=== PATIENT | female | born 2000 | race Caucasian/White ===

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

== ENCOUNTER 2020-11-26 10:37 | Emergency (ER) | payer OTHER ==
--- NOTE | 2020-11-26 10:41 | ERPHSYRPT ---
- History of Present Illness Time Seen by Provider: 11/26/20 10:40 Historian: patient, family Exam Limitations: no limitations Physician History: This is a 20-year-old white female has who has had a section in the past no other abdominal surgeries and presents with a 1 week history of generalized abdominal pain with associated nausea and vomiting and diarrhea. In the last 2 days the pain has changed to more of a generalized burning pain. Patient is under a lot of stress at this time she states. She restarted her antidepressant medication. He has had no fevers or chills. She has no chest pain or shortness of breath. Patient states that she does have significant depression and feels more depressed recently. She denies dysuria. She denies flank pain. Patient states that in the last 3 days she has lost 13 pounds. She has not been eating in the 4 days prior to the last 3 days. However she has been trying to eat in the last 3 days and she continues to vomit. Timing/Duration: week(s) (1), intermittent, worse Quality: burning Abdominal Pain Onset Location: generalized abdomen Pain Radiation: no radiation Severity of Pain-Max: mild Severity of Pain-Current: mild Modifying Factors: Improves With: eating, vomiting Associated Symptoms: diarrhea, loss of appetite, nausea, vomiting Previous symptoms: no prior history Allergies/Adverse Reactions: No Known Drug Allergies Allergy (Verified 11/26/20 11:08) Home Medications: Sertraline HCl 50 mg [Zoloft 50 mg Tablet] 50 mg PO DAILY 11/26/20 [History] Hx Tetanus, Diphtheria Vaccination/Date Given: Yes Hx Influenza Vaccination/Date Given: Yes Hx Pneumococcal Vaccination/Date Given: No Travel Risk - International Travel Have you traveled outside of the country in past 3 weeks: No - Coronavirus Screening Are you exhibiting any of the following symptoms?: No Close contact with a COVID-19 positive Pt in past 14-21 Days: No - Review of Systems Constitutional: No Symptoms Eyes: No Symptoms Ears, Nose, & Throat: No Symptoms Respiratory: No Symptoms Cardiac: No Symptoms Abdominal/Gastrointestinal: Abdominal Pain, Nausea, Vomiting, Diarrhea, Appetite Changes Genitourinary Symptoms: No Symptoms Musculoskeletal: No Symptoms Skin: No Symptoms Neurological: No Symptoms Psychological: No Symptoms Endocrine: No Symptoms Hematologic/Lymphatic: No Symptoms Immunological/Allergic: No Symptoms All Other Systems: Reviewed and Negative - Past Medical History Pertinent Past Medical History: Yes Neurological History: No Pertinent History Cardiac History: No Pertinent History Respiratory History: No Pertinent History Endocrine Medical History: Hyperthyroidism Musculoskeletal History: No Pertinent History Other Medical History: 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 - Past Surgical History Past Surgical History: Yes Female Surgical History: Section Other Surgical History: SKIN GRAFTS-2014 - Social History Smoking Status: Former smoker How long have you smoked: 3 mos Exposure to second hand smoke: No Drug Use: none Patient Lives Alone: No - Nursing Vital Signs Nursing Vital Signs: Initial Vital Signs Temperature 97.8 F 11/26/20 10:49 Pulse Rate 110 H 11/26/20 10:49 Respiratory Rate 20 11/26/20 10:49 Blood Pressure 142/95 11/26/20 10:49 O2 Sat by Pulse Oximetry 99 11/26/20 10:49 Pain Scale Pain Intensity 0 - Physical Exam General Appearance: no apparent distress, alert, anxiety Eye Exam: PERRL/EOMI, eyes nml inspection Ears, Nose, Throat Exam: normal ENT inspection, moist mucous membranes Neck Exam: normal inspection, non-tender, supple, full range of motion Respiratory Exam: normal breath sounds, lungs clear, airway intact, No chest tenderness, No respiratory distress Cardiovascular Exam: regular rate/rhythm, normal heart sounds, normal peripheral pulses Gastrointestinal/Abdomen Exam: soft, normal bowel sounds, tenderness (Mild gener alized), guarding, No rebound Pelvic Exam: not done Rectal Exam: not done Back Exam: normal inspection, normal range of motion, No CVA tenderness, No vertebral tenderness Extremity Exam: normal inspection, normal range of motion, pelvis stable Neurologic Exam: alert, oriented x 3, cooperative, sand mixer II-XII nml as tested, nml cerebellar function, nml station & gait, depressed mood/affect Skin Exam: normal color, warm, dry Lymphatic Exam: No adenopathy SpO2 Interpretation: normal O2 Delivery: Room Air - Course Nursing assessment & vital signs reviewed: Yes Ordered Tests: Active Orders 24 hr Category Date Time Status IV Insertion STAT Care 11/26/20 11:23 Active ABDOMEN AND PELVIS W/0 CONTRAS [CT] Stat Exams 11/26/20 11:24 Taken AMYLASE Stat Lab 11/26/20 11:08 Completed CBC W DIFF Stat Lab 11/26/20 11:08 Completed CMP Stat Lab 11/26/20 11:08 Completed HCG,QUALITATIVE URINE Stat Lab 11/26/20 11:08 Completed LIPASE Stat Lab 11/26/20 11:08 Completed Lactic Acid Stat Lab 11/26/20 11:23 Completed UA W/RFX UR CULTURE Stat Lab 11/26/20 11:08 Completed Medication Summary Discontinued Medications Generic Name Dose Route Start Last Admin Trade Name Rosi PRN Reason Stop Dose Admin Hydromorphone HCl 0.5 mg 11/26/20 11:23 11/26/20 11:31 Hydromorphone 1 Mg/Ml Injection IV 11/26/20 11:24 0.5 mg STAT ONE Administration Hydromorphone HCl Confirm 11/26/20 11:29 Hydromorphone 1 Mg/Ml Injection Administered 11/26/20 11:30 Dose 1 mg .ROUTE .STK-MED ONE Sodium Chloride 1,000 mls @ 999 mls/hr 11/26/20 11:23 11/26/20 11:30 Sodium Chloride 0.9% 1000 Ml IV 11/26/20 12:23 999 mls/hr .Q1H1M STA Administration Sodium Chloride Confirm 11/26/20 11:29 Sodium Chloride 0.9% 1000 Ml Administered 11/26/20 11:30 Dose 1,000 mls @ ud .ROUTE .STK-MED ONE Ondansetron HCl 4 mg 11/26/20 11:23 11/26/20 11:30 Zofran 4 Mg/2 Ml Vial IV 11/26/20 11:24 4 mg STAT ONE Administration Ondansetron HCl Confirm 11/26/20 11:29 Zofran 4 Mg/2 Ml Vial Administered 11/26/20 11:30 Dose 4 mg .ROUTE .STK-MED ONE Pantoprazole Sodium 40 mg 11/26/20 11:23 11/26/20 11:30 Protonix 40 Mg Iv IV 11/26/20 11:24 40 mg STAT ONE Administration Pantoprazole Sodium Confirm 11/26/20 11:29 Protonix 40 Mg Iv Administered 11/26/20 11:30 Dose 40 mg IV .STK-MED ONE Lab/Rad Data: Laboratory Result Diagrams 11/26/20 11:08 11/26/20 11:08 Laboratory Results 06/12/1111/26/20 11/26/20 Range/Units 11:23 11:08 11:08 WBC (4.0-10.5) K/mm3 RBC (4.1-5.4) M/mm3 Hgb (12.0-16.0) gm/dl Hct (35-47) % MCV (78-100) fl MCH (26-32) pg MCHC (32-36) g/dl RDW (11.5-14.0) % Plt Count (150-450) K/mm3 MPV (7.5-11.0) fl Gran % (36.0-66.0) % Eos # (Auto) (0-0.5) Absolute Lymphs (auto) (1.0-4.6) Absolute Monos (auto) (0.0-1.3) Lymphocytes % (24.0-44.0) % Monocytes % (0.0-12.0) % Eosinophils % (0.00-5.0) % Basophils % (0.0-0.4) % Absolute Granulocytes (1.4-6.9) Basophils # (0-0.4) Sodium (137-145) mmol/L Potassium (3.5-5.1) mmol/L Chloride (98-107) mmol/L Carbon Dioxide (22-30) mmol/L Anion Gap (5-15) MEQ/L BUN (7-17) mg/dL Creatinine (0.52-1.04) mg/dL Estimated GFR ML/MIN Glucose (74-106) mg/dL Lactic Acid 1.2 (0.4-2.0) Calcium (8.4-10.2) mg/dL Total Bilirubin (0.2-1.3) mg/dL AST (14-36) U/L ALT (0-35) U/L Alkaline Phosphatase (38-126) U/L Serum Total Protein (6.3-8.2) g/dL Albumin (3.5-5.0) g/dL Amylase (30-110) U/L Lipase (23-300) U/L Urine Color MARINO (YELLOW) Urine Appearance SLIGHTLY CLOUDY (CLEAR) Urine pH 5.0 (5-6) Ur Specific [place] 1.032 (1.005-1.025) Urine Protein 30 (Negative) Urine Ketones SMALL (NEGATIVE) Urine Blood MODERATE (0-5) Cash/ul Urine Nitrite NEGATIVE (NEGATIVE) Urine Bilirubin NEGATIVE (NEGATIVE) Urine Urobilinogen 2 (0-1) mg/dL Ur Leukocyte Esterase SMALL (NEGATIVE) Urine WBC (Auto) 6-10 (0-5) /HPF Urine RBC (Auto) 0-2 (0-2) /HPF U Hyaline Cast (Auto) 0-2 (0-2) /LPF U Epithel Cells (Auto) RARE (FEW) /HPF Urine Bacteria (Auto) NONE (NEGATIVE) /HPF Urine Mucus (Auto) MANY (NEGATIVE) /HPF Urine Culture Reflexed NO (NO) Urine Glucose NEGATIVE (NEGATIVE) mg/dL Urine HCG, Qual NEGATIVE (Negative) 11/26/20 11/26/20 Range/Units 11:08 11:08 WBC 7.6 (4.0-10.5) K/mm3 RBC 4.49 (4.1-5.4) M/mm3 Hgb 14.7 (12.0-16.0) gm/dl Hct 43.8 (35-47) % MCV 97.6 (78-100) fl MCH 32.7 H (26-32) pg MCHC 33.6 (32-36) g/dl RDW 12.2 (11.5-14.0) % Plt Count 340 (150-450) K/mm3 MPV 9.4 (7.5-11.0) fl Gran % 60.9 (36.0-66.0) % Eos # (Auto) 0.15 (0-0.5) Absolute Lymphs (auto) 2.14 (1.0-4.6) Absolute Monos (auto) 0.66 (0.0-1.3) Lymphocytes % 28.3 (24.0-44.0) % Monocytes % 8.7 (0.0-12.0) % Eosinophils % 2.0 (0.00-5.0) % Basophils % 0.1 (0.0-0.4) % Absolute Granulocytes 4.60 (1.4-6.9) Basophils # 0.01 (0-0.4) Sodium 141 (137-145) mmol/L Potassium 3.7 (3.5-5.1) mmol/L Chloride 107 (98-107) mmol/L Carbon Dioxide 22 (22-30) mmol/L Anion Gap 16.1 H (5-15) MEQ/L BUN 9 (7-17) mg/dL Creatinine 0.72 (0.52-1.04) mg/dL Estimated GFR > 60.0 ML/MIN Glucose 103 (74-106) mg/dL Lactic Acid (0.4-2.0) Calcium 9.7 (8.4-10.2) mg/dL Total Bilirubin 0.50 (0.2-1.3) mg/dL AST 22 (14-36) U/L ALT 21 (0-35) U/L Alkaline Phosphatase 80 (38-126) U/L Serum Total Protein 7.9 (6.3-8.2) g/dL Albumin 4.8 (3.5-5.0) g/dL Amylase 47 (30-110) U/L Lipase 40 (23-300) U/L Urine Color (YELLOW) Urine Appearance (CLEAR) Urine pH (5-6) Ur Specific [place] (1.005-1.025) Urine Protein (Negative) Urine Ketones (NEGATIVE) Urine Blood (0-5) Cash/ul Urine Nitrite (NEGATIVE) Urine Bilirubin (NEGATIVE) Urine Urobilinogen (0-1) mg/dL Ur Leukocyte Esterase (NEGATIVE) Urine WBC (Auto) (0-5) /HPF Urine RBC (Auto) (0-2) /HPF U Hyaline Cast (Auto) (0-2) /LPF U Epithel Cells (Auto) (FEW) /HPF Urine Bacteria (Auto) (NEGATIVE) /HPF Urine Mucus (Auto) (NEGATIVE) /HPF Urine Culture Reflexed (NO) Urine Glucose (NEGATIVE) mg/dL Urine HCG, Qual (Negative) - Progress Progress Note: 11/26/20 12:23 CAT scan of the abdomen and pelvis shows no acute intra-abdominal or intrapelvic findings. Counseled pt/family regarding: lab results, diagnosis, need for follow-up, rad results - Departure Departure Disposition: Home Clinical Impression: UTI (urinary tract infection), Abdominal pain Condition: Stable Critical Care Time: No Referrals: KIARA LAGUNA [Primary Care Provider] - Additional Instructions: Drink plenty of fluids. Take your medication as prescribed. Follow-up with Dr. Laguna's office tomorrow morning to make arrangements for follow-up appointment and further management. Prescriptions: Ondansetron ODT 4 MG [Zofran Odt 4 mg] 4 mg PO Q6H PRN PRN #10 tab.rapdis PRN Reason: Vomiting Ciprofloxacin [Cipro 500 MG] 500 mg PO BID #14 tablet
[2020-11-26] MEDS ORDERED: Sodium Chloride 0.9% 1000 ML 1,000 ML IV STA (11:23)
[2020-11-26] MEDS ORDERED: Zofran 4 MG/2 ML VIAL IV ONE (11:23)
[2020-11-26] MEDS ORDERED: PROTONIX 40 MG IV IV ONE ×2 (11:23→11:29)
[2020-11-26] MEDS ORDERED: Hydromorphone 1 mg/ml Injection IV ONE (11:23)
[2020-11-26 11:29] LABS: BASOPHIL % 0.1 % (0.0-0.4); Basophil (Absolute #) 0.01 (0-0.4); Eosinophil (Absolute #) 0.15 (0-0.5); Hematocrit 43.8 % (35-47); Hemoglobin 14.7 gm/dl (12.0-16.0); Lymphocyte (Absolute #) 2.14 (1.0-4.6); Lymphocytes % 28.3 % (24.0-44.0); Mean Cell Volume 97.6 fl (78-100); Mean Corpuscular Hemoglobin 32.7 pg (26-32); Mean Corpuscular Hgb Concent. 33.6 g/dl (32-36); Mean Platelet Volume 9.4 fl (7.5-11.0); Monocyte (Absolute #) 0.66 (0.0-1.3); Monocytes % 8.7 % (0.0-12.0); Neutrophil % 60.9 % (36.0-66.0); Platelet Count 340 K/mm3 (150-450); Red Blood Count 4.49 M/mm3 (4.1-5.4); Red Cell Distribution Width 12.2 % (11.5-14.0); White Blood Count 7.6 K/mm3 (4.0-10.5)
[2020-11-26] MEDS ORDERED: Hydromorphone 1 mg/ml Injection ONE (11:29)
[2020-11-26] MEDS ORDERED: Sodium Chloride 0.9% 1000 ML 1,000 ML ONE (11:29)
[2020-11-26] MEDS ORDERED: Zofran 4 MG/2 ML VIAL ONE (11:29)
[2020-11-26 11:41] LABS: ALBUMIN 4.8 g/dL (3.5-5.0); ALKALINE PHOSPHATASE 80 U/L (38-126); AMYLASE 47 U/L (30-110); ANION GAP 16.1 MEQ/L (5-15); Appearance SLIGHTLY CLOUDY (CLEAR); BLOOD UREA NITROGEN 9 mg/dL (7-17); Bilirubin NEGATIVE (NEGATIVE); Blood MODERATE Ery/ul (0-5); CHLORIDE 107 mmol/L (98-107); Calcium 9.7 mg/dL (8.4-10.2); Carbon Dioxide 22 mmol/L (22-30); Creatinine 1 0.72 mg/dL (0.52-1.04); EST GLOMERULAR FILTRATION RATE > 60.0 ML/MIN; Epithelial Cells RARE /HPF (FEW); Glucose 103 mg/dL (74-106); Glucose NEGATIVE (NEGATIVE); Hyaline Casts 0-2 /LPF (0-2); Ketones SMALL (NEGATIVE); LIPASE 40 U/L (23-300); Leukocyte Esterase SMALL (NEGATIVE); Mucus MANY /HPF (NEGATIVE); Nitrite NEGATIVE (NEGATIVE); Potassium 3.7 mmol/L (3.5-5.1); Protein,Urine Dip 30 (Negative); RBC 0-2 /HPF (0-2); SGOT/AST 22 U/L (14-36); SGPT/ALT 21 U/L (0-35); SODIUM 141 mmol/L (137-145); Specific Gravity 1.032 (1.005-1.025); Total Protein 7.9 g/dL (6.3-8.2); Urobilinogen 2 mg/dL (0-1)
[2020-11-26] MEDS ORDERED: ROCEPHIN 1 Gm-D5w 50 ml Bag** 1 G/50 ML IVPB IV STA (12:24)
[2020-11-26] MEDS ORDERED: ROCEPHIN 1 Gm-D5w 50 ml Bag** 1 G/50 ML IVPB IV ONE (12:26)
[2020-11-26 13:11] VITALS: BP 99/56; PULSE 99; O2SAT 99
--- NOTE | 2020-11-26 19:21 | XRAY ---
Indication: Abdomen pain, nausea, vomiting, and diarrhea. Multiple contiguous axial images obtained through the abdomen and pelvis without contrast. Comparison: November 14, 2013 Lung bases demonstrates minimal bibasilar atelectasis/scarring and tiny right lower lobe calcified granuloma. No infiltrate or effusion. Heart not enlarged. Noncontrasted stomach and bowel loops nonobstructed. Normal appendix. Uterus demonstrates new IUD. No free fluid/air. Remaining liver, gallbladder, pancreas, spleen, adrenal glands, kidneys, ureters, bladder, uterus, and aorta are unremarkable for noncontrast exam. Osseous structures intact. Impression: 1. New IUD in situ. 2. Remaining CT abdomen/pelvis without contrast exam is negative. Comment: Preliminary interpretation was made by [facility]. No critical discrepancy.
== END 2020-11-26 13:12 | disposition home or self-care (01) ==
LOC: ED 10:37
DX: N39.0 Urinary tract infection, site not specified (principal); R10.9 Unspecified abdominal pain
CPT/HCPCS: 36000; 36415; 74176; 80053; 81001; 82150; 83605; 83690; 84703; 85025; 96360; 96365; 96374; 96375; 99284; J0696; J1170; J2405

== ENCOUNTER 2020-12-22 07:23 | Emergency (ER) | payer OTHER ==
[2020-12-22] MEDS ORDERED: Sodium Chloride 0.9% 1000 ML 1,000 ML IV STA (07:46)
--- NOTE | 2020-12-22 07:51 | ERPHSYRPT ---
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 She does report sore throat congestion and generalized chest soreness/tightness. Had nausea but no vomiting. Complaining of generalized body aches fatigue extreme tiredness with no energy. Does report mild headache and lightheadedness. Reports having multiple episodes of strep pharyngitis in the past. Did not have Covid vaccine Timing/Duration: today, sudden, improved Cough Quality/Degree: no cough Modifying Factors: Improves With: activity Associated Symptoms: fever, chills, chest pain/soreness, headache, lightheadedness, muscle aches, nasal congestion, sore throat, No shortness of breath Allergies/Adverse Reactions: No Known Drug Allergies Allergy (Verified 12/22/20 07:35) Home Medications: Sertraline HCl 50 mg [Zoloft 50 mg Tablet] 50 mg PO DAILY 11/26/20 [History] Hydroxyzine HCl 25 mg [Atarax 25 mg] 25 mg PO DAILY 12/22/20 [History] Omeprazole 40 mg PO DAILY 12/22/20 [History] Hx Tetanus, Diphtheria Vaccination/Date Given: Yes Hx Influenza Vaccination/Date Given: Yes Hx Pneumococcal Vaccination/Date Given: No Travel Risk - International Travel Have you traveled outside of the country in past 3 weeks: No - Coronavirus Screening Are you exhibiting any of the following symptoms?: No Symptoms: Fever, Headaches/Body Aches/Fatigue Close contact with a COVID-19 positive Pt in past 14-21 Days: Yes - Vaccine Status Have you recieved a Covid-19 vaccination: No - Review of Systems Constitutional: Fever, Chills, Fatigue, Weakness Eyes: No Symptoms Ears, Nose, & Throat: Nose Congestion, Throat Pain Respiratory: No Symptoms Cardiac: Chest Pain Abdominal/Gastrointestinal: Nausea Genitourinary Symptoms: No Symptoms Musculoskeletal: Myalgias Neurological: Dizziness, Headache Psychological: No Symptoms Endocrine: No Symptoms Hematologic/Lymphatic: No Symptoms Immunological/Allergic: No Symptoms - Past Medical History Pertinent Past Medical History: Yes Neurological History: No Pertinent History Cardiac History: No Pertinent History Respiratory History: No Pertinent History Endocrine Medical History: Hyperthyroidism Musculoskeletal History: No Pertinent History GI Medical History: Ulcer Other Medical History: 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 - Past Surgical History Past Surgical History: Yes Musculoskeletal: Orthopedic Surgery Female Surgical History: Section Other Surgical History: SKIN GRAFTS-2014 - Social History Smoking Status: Current every day smoker How long have you smoked: 3 mos Exposure to second hand smoke: Yes Drug Use: none Patient Lives Alone: No - Female History Hx Now: No (leni) - Nursing Vital Signs Nursing Vital Signs: Initial Vital Signs Temperature 98.9 F 12/22/20 07:26 Pulse Rate 117 H 12/22/20 07:26 Blood Pressure 93/59 12/22/20 07:26 O2 Sat by Pulse Oximetry 97 12/22/20 07:26 Pain Scale Pain Intensity 3 - Physical Exam General Appearance: no apparent distress, alert Eye Exam: PERRL/EOMI, eyes nml inspection Ears, Nose, Throat Exam: TMs normal, pharyngeal erythema Neck Exam: normal inspection, non-tender, supple, full range of motion Respiratory Exam: normal breath sounds, lungs clear Cardiovascular Exam: normal heart sounds, tachycardia Gastrointestinal/Abdomen Exam: soft, normal bowel sounds, No tenderness Back Exam: normal inspection, normal range of motion Extremity Exam: normal inspection, normal range of motion, pelvis stable Neurologic Exam: alert, oriented x 3, cooperative Skin Exam: normal color SpO2 Interpretation: normal SpO2: 97 O2 Delivery: Room Air Ordered Tests: Active Orders 24 hr Category Date Time Status IV Insertion STAT Care 12/22/20 07:46 Completed CHEST 1 VIEW (PORTABLE) Stat Exams 12/22/20 07:47 Completed BLOOD CULTURE Stat Lab 12/22/20 08:20 Received CBC W DIFF Stat Lab 12/22/20 08:20 Completed CMP Stat Lab 12/22/20 08:20 Completed HCG,QUALITATIVE URINE Stat Lab 12/22/20 08:14 Completed Lactic Acid Stat Lab 12/22/20 07:46 Completed UA W/RFX UR CULTURE Stat Lab 12/22/20 08:14 Completed Medication Summary Discontinued Medications Generic Name Dose Route Start Last Admin Trade Name Rosi PRN Reason Stop Dose Admin Acetaminophen 1,000 mg 12/22/20 09:38 12/22/20 09:41 Tylenol Extra Strength 500 Mg PO 01/21/21 09:37 1,000 mg Q4H PRN PRN Administration HEADACHE Acetaminophen Confirm 12/22/20 09:40 Tylenol Extra Strength 500 Mg Administered 12/22/20 09:41 Dose 1,000 mg .ROUTE .STK-MED ONE Amoxicillin/Clavulanate Potassium 875 mg 12/22/20 09:36 12/22/20 09:42 Augmentin 875-125 Tablet PO 12/22/20 09:37 875 mg STAT ONE Administration Amoxicillin/Clavulanate Potassium Confirm 12/22/20 09:40 Augmentin 875-125 Tablet Administered 12/22/20 09:41 Dose 875 mg .ROUTE .STK-MED ONE Sodium Chloride 1,000 mls @ 999 mls/hr 12/22/20 07:46 12/22/20 09:23 Sodium Chloride 0.9% 1000 Ml IV 12/22/20 08:46 Infused .Q1H1M STA Infusion Sodium Chloride Confirm 12/22/20 08:04 Sodium Chloride 0.9% 1000 Ml Administered 12/22/20 08:05 Dose 1,000 mls @ ud .ROUTE .STK-MED ONE Lab/Rad Data: Laboratory Result Diagrams 12/22/20 08:20 12/22/20 08:20 Laboratory Results 12/22/20 12/22/20 12/22/20 Range/Units 08:20 08:20 08:20 WBC (4.0-10.5) K/mm3 RBC (4.1-5.4) M/mm3 Hgb (12.0-16.0) gm/dl Hct (35-47) % MCV (78-100) fl MCH (26-32) pg MCHC (32-36) g/dl RDW (11.5-14.0) % Plt Count (150-450) K/mm3 MPV (7.5-11.0) fl Gran % (36.0-66.0) % Eos # (Auto) (0-0.5) Absolute Lymphs (auto) (1.0-4.6) Absolute Monos (auto) (0.0-1.3) Lymphocytes % (24.0-44.0) % Monocytes % (0.0-12.0) % Eosinophils % (0.00-5.0) % Basophils % (0.0-0.4) % Absolute Granulocytes (1.4-6.9) Basophils # (0-0.4) Sodium 135 L (137-145) mmol/L Potassium 3.9 (3.5-5.1) mmol/L Chloride 101 (98-107) mmol/L Carbon Dioxide 23 (22-30) mmol/L Anion Gap 14.9 (5-15) MEQ/L BUN 8 (7-17) mg/dL Creatinine 0.71 (0.52-1.04) mg/dL Estimated GFR > 60.0 ML/MIN Glucose 104 (74-106) mg/dL Lactic Acid (0.4-2.0) Calcium 9.2 (8.4-10.2) mg/dL Total Bilirubin 0.60 (0.2-1.3) mg/dL AST 27 (14-36) U/L ALT 15 (0-35) U/L Alkaline Phosphatase 61 (38-126) U/L Serum Total Protein 7.2 (6.3-8.2) g/dL Albumin 4.5 (3.5-5.0) g/dL Urine Color (YELLOW) Urine Appearance (CLEAR) Urine pH (5-6) Ur Specific [place] (1.005-1.025) Urine Protein (Negative) Urine Ketones (NEGATIVE) Urine Blood (0-5) Cash/ul Urine Nitrite (NEGATIVE) Urine Bilirubin (NEGATIVE) Urine Urobilinogen (0-1) mg/dL Ur Leukocyte Esterase (NEGATIVE) Urine WBC (Auto) (0-5) /HPF Urine RBC (Auto) (0-2) /HPF U Epithel Cells (Auto) (FEW) /HPF Urine Bacteria (Auto) (NEGATIVE) /HPF Urine Mucus (Auto) (NEGATIVE) /HPF Urine Culture Reflexed (NO) Urine Glucose (NEGATIVE) mg/dL Urine HCG, Qual (Negative) SARS-CoV-2 (PCR) NEGATIVE (NEGATIVE) Group A Strep Antibody DETECTED (NEGATIVE) 12/22/20 12/22/20 12/22/20 Range/Units 08:20 08:14 08:14 WBC 13.8 H (4.0-10.5) K/mm3 RBC 4.22 (4.1-5.4) M/mm3 Hgb 13.8 (12.0-16.0) gm/dl Hct 41.2 (35-47) % MCV 97.6 (78-100) fl MCH 32.7 H (26-32) pg MCHC 33.5 (32-36) g/dl RDW 11.4 L (11.5-14.0) % Plt Count 310 (150-450) K/mm3 MPV 9.5 (7.5-11.0) fl Gran % 87.9 H (36.0-66.0) % Eos # (Auto) 0.01 (0-0.5) Absolute Lymphs (auto) 0.78 L (1.0-4.6) Absolute Monos (auto) 0.86 (0.0-1.3) Lymphocytes % 5.7 L (24.0-44.0) % Monocytes % 6.2 (0.0-12.0) % Eosinophils % 0.1 (0.00-5.0) % Basophils % 0.1 (0.0-0.4) % Absolute Granulocytes 12.13 H (1.4-6.9) Basophils # 0.02 (0-0.4) Sodium (137-145) mmol/L Potassium (3.5-5.1) mmol/L Chloride (98-107) mmol/L Carbon Dioxide (22-30) mmol/L Anion Gap (5-15) MEQ/L BUN (7-17) mg/dL Creatinine (0.52-1.04) mg/dL Estimated GFR ML/MIN Glucose (74-106) mg/dL Lactic Acid (0.4-2.0) Calcium (8.4-10.2) mg/dL Total Bilirubin (0.2-1.3) mg/dL AST (14-36) U/L ALT (0-35) U/L Alkaline Phosphatase (38-126) U/L Serum Total Protein (6.3-8.2) g/dL Albumin (3.5-5.0) g/dL Urine Color YELLOW (YELLOW) Urine Appearance SLIGHTLY CLOUDY (CLEAR) Urine pH 5.0 (5-6) Ur Specific [place] 1.024 (1.005-1.025) Urine Protein NEGATIVE (Negative) Urine Ketones NEGATIVE (NEGATIVE) Urine Blood MODERATE (0-5) Cash/ul Urine Nitrite NEGATIVE (NEGATIVE) Urine Bilirubin NEGATIVE (NEGATIVE) Urine Urobilinogen NEGATIVE (0-1) mg/dL Ur Leukocyte Esterase NEGATIVE (NEGATIVE) Urine WBC (Auto) 3-5 (0-5) /HPF Urine RBC (Auto) 0-2 (0-2) /HPF U Epithel Cells (Auto) RARE (FEW) /HPF Urine Bacteria (Auto) RARE (NEGATIVE) /HPF Urine Mucus (Auto) SLIGHT (NEGATIVE) /HPF Urine Culture Reflexed NO (NO) Urine Glucose NEGATIVE (NEGATIVE) mg/dL Urine HCG, Qual NEGATIVE (Negative) SARS-CoV-2 (PCR) (NEGATIVE) Group A Strep Antibody (NEGATIVE) 12/22/20 Range/Units 07:46 WBC (4.0-10.5) K/mm3 RBC (4.1-5.4) M/mm3 Hgb (12.0-16.0) gm/dl Hct (35-47) % MCV (78-100) fl MCH (26-32) pg MCHC (32-36) g/dl RDW (11.5-14.0) % Plt Count (150-450) K/mm3 MPV (7.5-11.0) fl Gran % (36.0-66.0) % Eos # (Auto) (0-0.5) Absolute Lymphs (auto) (1.0-4.6) Absolute Monos (auto) (0.0-1.3) Lymphocytes % (24.0-44.0) % Monocytes % (0.0-12.0) % Eosinophils % (0.00-5.0) % Basophils % (0.0-0.4) % Absolute Granulocytes (1.4-6.9) Basophils # (0-0.4) Sodium (137-145) mmol/L Potassium (3.5-5.1) mmol/L Chloride (98-107) mmol/L Carbon Dioxide (22-30) mmol/L Anion Gap (5-15) MEQ/L BUN (7-17) mg/dL Creatinine (0.52-1.04) mg/dL Estimated GFR ML/MIN Glucose (74-106) mg/dL Lactic Acid 0.9 (0.4-2.0) Calcium (8.4-10.2) mg/dL Total Bilirubin (0.2-1.3) mg/dL AST (14-36) U/L ALT (0-35) U/L Alkaline Phosphatase (38-126) U/L Serum Total Protein (6.3-8.2) g/dL Albumin (3.5-5.0) g/dL Urine Color (YELLOW) Urine Appearance (CLEAR) Urine pH (5-6) Ur Specific [place] (1.005-1.025) Urine Protein (Negative) Urine Ketones (NEGATIVE) Urine Blood (0-5) Cash/ul Urine Nitrite (NEGATIVE) Urine Bilirubin (NEGATIVE) Urine Urobilinogen (0-1) mg/dL Ur Leukocyte Esterase (NEGATIVE) Urine WBC (Auto) (0-5) /HPF Urine RBC (Auto) (0-2) /HPF U Epithel Cells (Auto) (FEW) /HPF Urine Bacteria (Auto) (NEGATIVE) /HPF Urine Mucus (Auto) (NEGATIVE) /HPF Urine Culture Reflexed (NO) Urine Glucose (NEGATIVE) mg/dL Urine HCG, Qual (Negative) SARS-CoV-2 (PCR) (NEGATIVE) Group A Strep Antibody (NEGATIVE) - Progress Progress: improved Air Movement: good Progress Note: 12/22/20 09:40 She is given fluid bolus and Tylenol. Work-up showed white count of 13, grossly unremarkable chemistries. Negative COVID-19 swab. Does have strep throat positive. Started on Augmentin. Recommended outpatient follow-up. Discussed signs symptoms of worsening needing return to ER which she seems understanding. Stable for discharge. Blood Culture(s) Obtained: Yes Antibiotics given: Yes Counseled pt/family regarding: lab results, diagnosis, need for follow-up, rad results - Departure Departure Disposition: Home Clinical Impression: Strep pharyngitis Condition: Stable Critical Care Time: No Referrals: KIARA CLEMENTE [Primary Care Provider] - Follow Up with PCP/3 days Instructions: Sore Throat in Adults, Fever, Adult (DC) Additional Instructions: Take Tylenol/ibuprofen as needed for fever greater than 100.4. Drink plenty of fluids. Follow-up with primary care physician for reevaluation. Return to ER for worsening sore throat, persistent fever, decreased oral intake etc. Prescriptions: Amoxicillin/Potassium Clav [Augmentin 875-125 Tablet] 875 mg PO BID 7 Days #20 tablet
[2020-12-22] MEDS ORDERED: Sodium Chloride 0.9% 1000 ML 1,000 ML ONE (08:04)
[2020-12-22 08:37] LABS: Absolute Neutrophil Ct (ANC) 12.13 (1.4-6.9); BASOPHIL % 0.1 % (0.0-0.4); Basophil (Absolute #) 0.02 (0-0.4); Eosinophil % 0.1 % (0.00-5.0); Eosinophil (Absolute #) 0.01 (0-0.5); Hematocrit 41.2 % (35-47); Hemoglobin 13.8 gm/dl (12.0-16.0); Lymphocyte (Absolute #) 0.78 (1.0-4.6); Lymphocytes % 5.7 % (24.0-44.0); Mean Cell Volume 97.6 fl (78-100); Mean Corpuscular Hemoglobin 32.7 pg (26-32); Mean Corpuscular Hgb Concent. 33.5 g/dl (32-36); Mean Platelet Volume 9.5 fl (7.5-11.0); Monocyte (Absolute #) 0.86 (0.0-1.3); Monocytes % 6.2 % (0.0-12.0); Neutrophil % 87.9 % (36.0-66.0); Platelet Count 310 K/mm3 (150-450); Red Blood Count 4.22 M/mm3 (4.1-5.4); Red Cell Distribution Width 11.4 % (11.5-14.0); White Blood Count 13.8 K/mm3 (4.0-10.5)
[2020-12-22 08:43] LABS: Appearance SLIGHTLY CLOUDY (CLEAR); Bacteria RARE /HPF (NEGATIVE); Bilirubin NEGATIVE (NEGATIVE); Blood MODERATE Ery/ul (0-5); Epithelial Cells RARE /HPF (FEW); Glucose NEGATIVE (NEGATIVE); Ketones NEGATIVE (NEGATIVE); Leukocyte Esterase NEGATIVE (NEGATIVE); Mucus SLIGHT /HPF (NEGATIVE); Nitrite NEGATIVE (NEGATIVE); Protein,Urine Dip NEGATIVE (Negative); RBC 0-2 /HPF (0-2); Specific Gravity 1.024 (1.005-1.025); Urobilinogen NEGATIVE mg/dL (0-1)
[2020-12-22 08:54] LABS: ALBUMIN 4.5 g/dL (3.5-5.0); ALKALINE PHOSPHATASE 61 U/L (38-126); ANION GAP 14.9 MEQ/L (5-15); BLOOD UREA NITROGEN 8 mg/dL (7-17); CHLORIDE 101 mmol/L (98-107); Calcium 9.2 mg/dL (8.4-10.2); Carbon Dioxide 23 mmol/L (22-30); Creatinine 1 0.71 mg/dL (0.52-1.04); EST GLOMERULAR FILTRATION RATE > 60.0 ML/MIN; Glucose 104 mg/dL (74-106); Potassium 3.9 mmol/L (3.5-5.1); SGOT/AST 27 U/L (14-36); SGPT/ALT 15 U/L (0-35); SODIUM 135 mmol/L (137-145); Total Protein 7.2 g/dL (6.3-8.2)
--- NOTE | 2020-12-22 09:11 | XRAY ---
Indication: Fever and sore throat. Suspect Covid 19. Comparison: None Portable chest demonstrates normal heart, lungs, and bony thorax.
[2020-12-22 09:26] VITALS: BP 107/65; PULSE 93
[2020-12-22] MEDS ORDERED: Augmentin 875-125 Tablet PO ONE (09:36)
[2020-12-22] MEDS ORDERED: TYLENOL EXTRA STRENGTH 500 MG PO PRN (09:38)
[2020-12-22] MEDS ORDERED: TYLENOL EXTRA STRENGTH 500 MG ONE (09:40)
[2020-12-22] MEDS ORDERED: Augmentin 875-125 Tablet ONE (09:40)
[2020-12-22 09:42] VITALS: O2SAT 97
== END 2020-12-22 10:01 | disposition home or self-care (01) ==
LOC: ED 07:23
DX: J02.0 Streptococcal pharyngitis (principal); R07.89 Other chest pain; R11.0 Nausea; R51.9 Headache, unspecified; R42 Dizziness and giddiness; Z79.899 Other long term (current) drug therapy; Z20.828 Contact with and (suspected) exposure to other viral communicable diseases
CPT/HCPCS: 36415; 71045; 80053; 81001; 83605; 84703; 85025; 87040; 87651; 96360; 99284; U0003; A9270-GY

== ENCOUNTER 2021-07-19 10:12 | Emergency (ER) | payer OTHER ==
[2021-07-19 10:43] VITALS: O2SAT 96
--- NOTE | 2021-07-19 10:43 | ERPHSYRPT ---
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 She cleaned it thoroughly immediately afterward. Minimal bleeding on squeezing. She is not complaining of any pain right now but a little discomfort on applying pressure. Up-to-date with tetanus. Timing/Duration: today Quality: painful Severity: mild Location: hands Possible Causes: other Associated Symptoms: denies symptoms Allergies/Adverse Reactions: No Known Drug Allergies Allergy (Verified 12/22/20 07:35) Home Medications: Sertraline HCl 50 mg [Zoloft 50 mg Tablet] 50 mg PO DAILY 11/26/20 [History] Omeprazole 40 mg PO DAILY 12/22/20 [History] Phentermine HCl 1 ea DAILY 07/19/21 [History] Hx Tetanus, Diphtheria Vaccination/Date Given: Yes Hx Influenza Vaccination/Date Given: Yes Hx Pneumococcal Vaccination/Date Given: No Travel Risk - Vaccine Status Have you recieved a Covid-19 vaccination: No - Review of Systems Constitutional: No Symptoms Respiratory: No Symptoms Cardiac: No Symptoms Genitourinary Symptoms: No Symptoms Musculoskeletal: Injury Skin: Skin Lesions Neurological: No Symptoms Psychological: No Symptoms Endocrine: No Symptoms - Past Medical History Pertinent Past Medical History: Yes Neurological History: No Pertinent History Cardiac History: No Pertinent History Respiratory History: No Pertinent History Endocrine Medical History: Hyperthyroidism Musculoskeletal History: No Pertinent History GI Medical History: Ulcer Other Medical History: 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 - Past Surgical History Past Surgical History: Yes Musculoskeletal: Orthopedic Surgery Female Surgical History: Section Other Surgical History: SKIN GRAFTS-2014 - Social History Smoking Status: Current every day smoker How long have you smoked: 3 mos Exposure to second hand smoke: Yes Drug Use: none Patient Lives Alone: No - Nursing Vital Signs Nursing Vital Signs: Initial Vital Signs Temperature 98.0 F 07/19/21 10:12 Pulse Rate 107 H 07/19/21 10:12 Respiratory Rate 16 07/19/21 10:12 Blood Pressure 124/91 07/19/21 10:12 O2 Sat by Pulse Oximetry 97 07/19/21 10:12 Pain Scale Pain Intensity 0 - Physical Exam General Appearance: no apparent distress, alert Eye Exam: PERRL/EOMI Neck Exam: normal inspection, full range of motion Respiratory Exam: normal breath sounds, lungs clear Cardiovascular Exam: regular rate/rhythm, normal heart sounds Extremity Exam: other (Minimal tenderness in the right third digit pulp area with barely visible needlestick nellie.) Neurologic Exam: alert, oriented x 3, cooperative Skin Exam: normal color SpO2 Interpretation: normal SpO2: 96 O2 Delivery: Room Air Ordered Tests: Active Orders 24 hr Category Date Time Status Wound Care STAT Care 07/19/21 10:51 Active Wound Care STAT Care 07/19/21 11:14 Active CBC W DIFF Stat Lab 07/19/21 11:12 Completed CMP Stat Lab 07/19/21 11:12 Completed HCG QUALITATIVE,SERUM Stat Lab 07/19/21 11:12 Completed Medication Summary Generic Name Dose Route Start Last Admin Trade Name Freq PRN Reason Stop Dose Admin Emtricitabine/Tenofovir 1 tablet 07/20/21 10:00 Emtricitabine/Tenofovir 1 Tablet PO 07/21/21 10:01 DAILY SHANNON Raltegravir 400 mg 07/19/21 22:00 07/19/21 12:11 Raltegravir Potassium 400 Mg Tablet PO 07/21/21 22:01 400 mg BID SHANNON Administration Raltegravir 400 mg 07/19/21 11:00 Raltegravir Potassium 400 Mg Tablet PO 08/18/21 10:59 STAT SHANNON Discontinued Medications Generic Name Dose Route Start Last Admin Trade Name Freq PRN Reason Stop Dose Admin Emtricitabine/Tenofovir 1 tablet 07/19/21 10:51 07/19/21 12:11 Emtricitabine/Tenofovir 1 Tablet PO 07/19/21 10:52 1 tablet STAT STA Administration Hepatitis B Immune Globulin 5 ml 07/19/21 11:14 07/19/21 12:09 Hepatitis B Immune Globulin 5 Ml Vial IM 07/19/21 11:15 5 ml ONCE ONE Administration Lab/Rad Data: Laboratory Result Diagrams 07/19/21 11:12 07/19/21 11:12 Laboratory Results 07/19/21 07/19/21 07/19/21 Range/Units 11:12 11:12 11:12 WBC 8.4 (4.0-10.5) K/mm3 RBC 4.16 (4.1-5.4) M/mm3 Hgb 13.6 (12.0-16.0) gm/dl Hct 39.5 (35-47) % MCV 95.0 (78-100) fl MCH 32.7 H (26-32) pg MCHC 34.4 (32-36) g/dl RDW 11.8 (11.5-14.0) % Plt Count 386 (150-450) K/mm3 MPV 9.1 (7.5-11.0) fl Gran % 70.2 H (36.0-66.0) % Eos # (Auto) 0.13 (0-0.5) Absolute Lymphs (auto) 1.77 (1.0-4.6) Absolute Monos (auto) 0.59 (0.0-1.3) Lymphocytes % 21.1 L (24.0-44.0) % Monocytes % 7.0 (0.0-12.0) % Eosinophils % 1.5 (0.00-5.0) % Basophils % 0.2 (0.0-0.4) % Absolute Granulocytes 5.88 (1.4-6.9) Basophils # 0.02 (0-0.4) Sodium 139 (137-145) mmol/L Potassium 4.0 (3.5-5.1) mmol/L Chloride 105 (98-107) mmol/L Carbon Dioxide 24 (22-30) mmol/L Anion Gap 13.9 (5-15) MEQ/L BUN 11 (7-17) mg/dL Creatinine 0.72 (0.52-1.04) mg/dL Estimated GFR > 60.0 ML/MIN Glucose 91 (74-106) mg/dL Calcium 9.2 (8.4-10.2) mg/dL Total Bilirubin 0.50 (0.2-1.3) mg/dL AST 21 (14-36) U/L ALT 17 (0-35) U/L Alkaline Phosphatase 65 (38-126) U/L Serum Total Protein 7.6 (6.3-8.2) g/dL Albumin 4.6 (3.5-5.0) g/dL Serum , Qual NEGATIVE (Negative) - Progress Progress: unchanged Progress Note: 07/19/21 12:28 She is given antiviral meds here and to go home for 3 days along with immunoglobulins for hep B as patient has low titer. Employee health is involved in patient would follow-up with them. Counseled pt/family regarding: lab results, diagnosis, need for follow-up - Departure Departure Disposition: Home Clinical Impression: Needlestick injury accident with exposure to body fluid Condition: Stable Critical Care Time: No Referrals: KIARA PATINO [ACTIVE STAFF] - Follow up/PCP as directed (1-2 days) Instructions: Blood or Body Fluid Exposure Additional Instructions: Follow-up with employee health/primary care for reevaluation in 1 to 2 days. Continue with your current antiviral medications. Take Zofran as needed for nausea or vomiting. Return to ER for increasing swelling redness discharge Around needlestick area or if develop fever chills etc. Prescriptions: Ondansetron ODT 4 MG [Zofran Odt 4 mg] 1 ea PO QIDPRN PRN #7 tablet PRN Reason: n/v
[2021-07-19] MEDS ORDERED: TRUVADA 200 MG-300 MG TABLET PO STA (10:51)
[2021-07-19] MEDS ORDERED: ISENTRESS PO SCH ×2 (11:00→22:00)
[2021-07-19] MEDS ORDERED: Nabi-Hb 5 ML IM ONE (11:14)
[2021-07-19 11:15] LABS: Absolute Neutrophil Ct (ANC) 5.88 (1.4-6.9); Basophil (Absolute #) 0.02 (0-0.4); Eosinophil % 1.5 % (0.00-5.0); Eosinophil (Absolute #) 0.13 (0-0.5); Hematocrit 39.5 % (35-47); Hemoglobin 13.6 gm/dl (12.0-16.0); Lymphocyte (Absolute #) 1.77 (1.0-4.6); Lymphocytes % 21.1 % (24.0-44.0); Mean Corpuscular Hemoglobin 32.7 pg (26-32); Mean Corpuscular Hgb Concent. 34.4 g/dl (32-36); Mean Platelet Volume 9.1 fl (7.5-11.0); Monocyte (Absolute #) 0.59 (0.0-1.3); Neutrophil % 70.2 % (36.0-66.0); Platelet Count 386 K/mm3 (150-450); Red Blood Count 4.16 M/mm3 (4.1-5.4); Red Cell Distribution Width 11.8 % (11.5-14.0); White Blood Count 8.4 K/mm3 (4.0-10.5)
[2021-07-19 11:23] VITALS: BP 124/91; PULSE 107
[2021-07-19 11:30] LABS: ALBUMIN 4.6 g/dL (3.5-5.0); ALKALINE PHOSPHATASE 65 U/L (38-126); ANION GAP 13.9 MEQ/L (5-15); BLOOD UREA NITROGEN 11 mg/dL (7-17); CHLORIDE 105 mmol/L (98-107); Calcium 9.2 mg/dL (8.4-10.2); Carbon Dioxide 24 mmol/L (22-30); Creatinine 1 0.72 mg/dL (0.52-1.04); EST GLOMERULAR FILTRATION RATE > 60.0 ML/MIN; Glucose 91 mg/dL (74-106); SGOT/AST 21 U/L (14-36); SGPT/ALT 17 U/L (0-35); SODIUM 139 mmol/L (137-145); Total Protein 7.6 g/dL (6.3-8.2)
[2021-07-20 09:56] LABS: HBsAg Screen Negative (Negative); HIV Screen 4th Generation wRfx Non Reactive (Non Reactive); Hep B Surface Ab, Quant >1000.0 mIU/mL (Immunity>9.9); Hep C Virus Ab <0.1 s/co ratio (0.0-0.9)
[2021-07-20] MEDS ORDERED: TRUVADA 200 MG-300 MG TABLET PO SCH (10:00)
== END 2021-07-19 12:39 | disposition home or self-care (01) ==
LOC: ER - EH 10:12
DX: S61.232A Puncture wound without foreign body of right middle finger without damage to nail, initial encounter (principal); W46.0XXA Contact with hypodermic needle, initial encounter; Y92.239 Unspecified place in hospital as the place of occurrence of the external cause; Y99.0 Civilian activity done for income or pay; Z77.21 Contact with and (suspected) exposure to potentially hazardous body fluids; Z72.0 Tobacco use; Z79.899 Other long term (current) drug therapy
CPT/HCPCS: 36415; 80053; 81025; 85025; 86317; 87340; 87389; 96372; 99283; G0472; 86803; J1571

== ENCOUNTER 2022-12-30 18:06 | Emergency (ER) | payer OTHER ==
--- NOTE | 2022-12-30 19:21 | XRAY ---
CLINICAL HISTORY:Pain. COMPARISON:None. TECHNIQUES:X-rays of the right elbow joint (AP, lateral and oblique projections) were performed. FINDINGS: No evidence of acute fracture was seen. Normal bones. Normal joints. No neoplastic mass. No lytic or sclerosis bone lesion. IMPRESSION: No evidence of acute fracture was seen. Disclaimer: "A subtle bone abnormality or fracture may not be readily apparent on x-rays, thus clinical correlation and further imaging including follow-up CT, MRI, or follow-up x-rays are advised as needed"). Electronically Signed by: Theodore Rand MD. (12/30/2022 18:17:36 CUSTOMER SALES SPECIALIST)
[2022-12-30 19:36] VITALS: PULSE 98; O2SAT 98
--- NOTE | 2022-12-30 20:12 | ERPHSYRPT ---
- History of Present Illness Source: patient Exam Limitations: no limitations Patient Subjective Stated Complaint: Pt states "I was standing with my arm against a wall and my arm extended and my sister ran into my arm and my elbow was locked and I heard a loud pop and now it hurts to straighten it or put pressure on it." Triage Nursing Assessment: Pt presented alert and oriented X 3, skin pwd. pt ambulates with an upright steady gait, able to speak in clear full sentences. PT right elbow has lateral and medial tenderness. Physician History: 22 yo WF w R elbow hyperextension which occurred last night when sister ran into R elbow when it was braced against a wall. pain is a 7 and worse w movement. Pt is R handed. No other injuries noted. Occurred: yesterday Method of Injury: direct blow Quality: constant Severity of Pain-Max: severe Severity of Pain-Current: moderate Extremities Pain Location: elbow: right Modifying Factors: Improves With: movement Associated Symptoms: none Allergies/Adverse Reactions: No Known Drug Allergies Allergy (Verified 12/22/20 07:35) Home Medications: Spironolactone [Aldactone] 100 mg PO DAILY 12/30/22 [History] Hx Tetanus, Diphtheria Vaccination/Date Given: Yes Hx Influenza Vaccination/Date Given: Yes Hx Pneumococcal Vaccination/Date Given: No Immunizations Up to Date: Yes Travel Risk - International Travel Have you traveled outside of the country in past 3 weeks: No - Coronavirus Screening Are you exhibiting any of the following symptoms?: No Close contact with a COVID-19 positive Pt in past 14-21 Days: No - Vaccine Status Have you recieved a Covid-19 vaccination: No Manager Gas: Unknown - Vaccination Dates Date of 2cond Vaccination (if applicable): ? Dates if Unknown: ? - Review of Systems Constitutional: No Symptoms Eyes: No Symptoms Ears, Nose, & Throat: No Symptoms Respiratory: No Symptoms Cardiac: No Symptoms Abdominal/Gastrointestinal: No Symptoms Genitourinary Symptoms: No Symptoms Skin: No Symptoms Neurological: No Symptoms Psychological: No Symptoms Endocrine: No Symptoms Hematologic/Lymphatic: No Symptoms Immunological/Allergic: No Symptoms - Past Medical History Pertinent Past Medical History: Yes Neurological History: No Pertinent History Cardiac History: No Pertinent History Respiratory History: No Pertinent History Endocrine Medical History: Hyperthyroidism Musculoskeletal History: No Pertinent History GI Medical History: Ulcer Other Medical History: 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 - Past Surgical History Past Surgical History: Yes Musculoskeletal: Orthopedic Surgery Female Surgical History: Section Other Surgical History: SKIN GRAFTS-2015 - Social History Smoking Status: Current every day smoker How long have you smoked: 3 mos Exposure to second hand smoke: Yes Drug Use: none Patient Lives Alone: No - Female History Hx Last Menstrual Period: 12/10/2022 Hx Now: No - Nursing Vital Signs Nursing Vital Signs: Initial Vital Signs Temperature 98.3 F 12/30/22 18:21 Pulse Rate 124 H 12/30/22 18:21 Respiratory Rate 20 12/30/22 18:21 Blood Pressure 118/81 12/30/22 18:21 O2 Sat by Pulse Oximetry 96 12/30/22 18:21 Pain Scale Pain Intensity 6 Tachy - Physical Exam General Appearance: no apparent distress Eyes, Ears, Nose, Throat Exam: normal ENT inspection Neck Exam: normal inspection, non-tender, supple, full range of motion, No Brudzinski, No Kernig's Cardiovascular/Respiratory Exam: normal breath sounds, heart sounds normal, no respiratory distress, tachycardia Abdominal Exam: non-tender, soft Back Exam: normal inspection, normal range of motion, No CVA tenderness, No vertebral tenderness Shoulder Exam: normal inspection Elbow/Forearm Exam: limited ROM (R olecranon TTP/Mild edema/Pain w flexion/good radial pulse, distal sensation, and capillary return) Wrist Exam: normal inspection Hand Exam: normal inspection Neuro/Tendon Exam: normal sensation, normal motor functions, normal tendon functions, responds to pain Mental Status Exam: alert, oriented x 3, cooperative Skin Exam: normal color, warm, dry SpO2 Interpretation: normal SpO2: 98 O2 Delivery: Room Air - Course Nursing assessment & vital signs reviewed: Yes - Radiology Exams Elbow X-ray Interpretation: Reviewed by me (R olecranon neg per rad), Teleradiologist Report Ordered Tests: Active Orders 24 hr Category Date Time Status ELBOW (MINIMUM 3 VIEWS) Stat Exams 12/30/22 18:31 Completed - Progress Progress: improved Progress Note: 12/30/22 20:15 Nursing note and vital signs reviewed No food or housing insecurities noted XR results reviewed and shared w pt 30mg IM Toradol Sling RUE per nursing/NVI Counseled pt/family regarding: diagnosis, need for follow-up, rad results Medical Desision Making - Diagnostic Testing Radiological Interpretation: Reviewed by me, Teleradiologist Report - Risk of complications Low Risk: Low risk of morbidity from additional dx testing or treatment - Departure Departure Disposition: Home Clinical Impression: Hyperextension injury of right elbow Condition: Stable Critical Care Time: No Referrals: DOCTOR,NO FAMILY [Primary Care Provider] - Follow up/PCP as directed ORTHO - ANTONIO CARMEN BARRATTE OPERATOR [NON-STAFF PHY W/O PRIVILEGES] - Follow up/PCP as directed Instructions: Elbow Sprain (DC) Additional Instructions: Ice for 12-24 hours Motrin/Tylenol for pain Ortho clinic M-Fr 8-10 Return to ER as needed
[2022-12-30] MEDS ORDERED: TORAdol 30 mg Injection IM ONE (20:13)
[2022-12-30] MEDS ORDERED: TORAdol 30 mg Injection ONE (20:19)
[2022-12-30 20:32] VITALS: BP 113/79
== END 2022-12-30 20:33 | disposition home or self-care (01) ==
LOC: ED 18:06
DX: S59.801A Other specified injuries of right elbow, initial encounter (principal); X50.0XXA Overexertion from strenuous movement or load, initial encounter; W50.0XXA Accidental hit or strike by another person, initial encounter; Z79.899 Other long term (current) drug therapy; Z28.310 Unvaccinated for COVID-19; Z72.0 Tobacco use
CPT/HCPCS: 73080; 96372; 99283; J1885

== ENCOUNTER 2023-11-29 13:56 | Emergency (ER) | payer BC ==
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
[2023-11-29 14:41] VITALS: TEMP 97.8
[2023-11-29 15:15] VITALS: O2SAT 95
[2023-11-29] MEDS ORDERED: Adacel Vial IM ONE (15:36)
[2023-11-29] MEDS: Adacel Vial IM ONE (15:37)
[2023-11-29 16:00] VITALS: BP 127/95; PULSE 88; RESP 16
[2023-12-01 12:55] LABS: HIV Screen 4th Generation wRfx Non Reactive (Non Reactive)
[2023-12-02 06:42] LABS: HBsAg Screen Negative (Negative); Hep B Surface Ab, Quant >1000.0 mIU/mL (Immunity>9.9); Hep C Virus Ab Non Reactive (Non Reactive)
== END 2023-11-29 16:00 | disposition home or self-care (01) ==
LOC: ED 13:56
DX: Z04.2 Encounter for examination and observation following work accident (principal); Z79.899 Other long term (current) drug therapy; Z72.0 Tobacco use; Z23 Encounter for immunization
CPT/HCPCS: 36415; 86317; 86803; 87340; 87389; 90471; 90715; 99283; G0472

== ENCOUNTER 2024-10-03 23:22 | Emergency (ER) | payer BC ==
[2024-10-03 23:49] VITALS: TEMP 98.5; O2SAT 100
[2024-10-04] MEDS: Sodium Chloride 0.9% 1000 ML 1,000 ML IV STA (00:14)
--- NOTE | 2024-10-04 00:23 | ERPHSYRPT ---
- History of Present Illness Time Seen by Provider: 10/04/24 00:11 Source: patient Exam Limitations: no limitations Patient Subjective Stated Complaint: c/o abdominal pain Triage Nursing Assessment: patient brought self to ED with c/o lower abdominal pain and rigth sided abdominal pain. patient states that on September 21 she had some vaginal bleeding and thought she may have had a miscarriage. patient is unsure if she was . patient has had some nausea and has been lightheaded over the past couple days. patient is hypertensive, skin w/n/d, afebrile, bowel sounds present in all 4 quads. gait steady, patient doesn't appear to be in any distress at this time. Timing/Duration: today Severity: mild Allergies/Adverse Reactions: No Known Drug Allergies Allergy (Verified 10/03/24 23:49) Home Medications: Phentermine HCl 37.5 mg PO DAILY 11/29/23 [History] Escitalopram Oxalate [Lexapro] 10 mg PO DAILY 10/03/24 [History] Norethindrone AC-Eth Estradiol [Phil 1.5 mg-30 Mcg Tablet] 1 tab PO DAILY 10/03/24 [History] Hx Tetanus, Diphtheria Vaccination/Date Given: Yes Hx Influenza Vaccination/Date Given: No Hx Pneumococcal Vaccination/Date Given: No Travel Risk - International Travel Have you traveled outside of the country in past 3 weeks: No - Emerging Infectious Disease Are you exhibiting symptoms associated with any current EIDs: No - Review of Systems Constitutional: No Symptoms Eyes: No Symptoms Ears, Nose, & Throat: No Symptoms Respiratory: No Symptoms Cardiac: No Symptoms Abdominal/Gastrointestinal: Abdominal Pain Genitourinary Symptoms: No Symptoms Musculoskeletal: No Symptoms Skin: No Symptoms Neurological: No Symptoms Psychological: No Symptoms Endocrine: No Symptoms Hematologic/Lymphatic: No Symptoms Immunological/Allergic: No Symptoms All Other Systems: Reviewed and Negative - Past Medical History Pertinent Past Medical History: Yes Neurological History: No Pertinent History Cardiac History: No Pertinent History Respiratory History: No Pertinent History Endocrine Medical History: Hyperthyroidism Musculoskeletal History: No Pertinent History GI Medical History: Ulcer Other Medical History: 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 Hx Now: No (unknown) - Social History Smoking Status: Current every day smoker How long have you smoked: 3 mos Exposure to second hand smoke: Yes Drug Use: none - Social Determinants of Health Will the patient participate in the screening: Yes Do you worry about a steady place to live?: No Do you have any problems with any of the following?: No known problems In the past 12 months,have you had to go without utilities?: No Transportation Issues: No Has anyone in your support network made you feel unsafe?: No Have you or anyone in your house had to go w/o enough food: No - Nursing Vital Signs Nursing Vital Signs: Initial Vital Signs Temperature 98.5 F 10/03/24 23:34 Pulse Rate 117 H 10/03/24 23:34 Respiratory Rate 20 10/03/24 23:34 Blood Pressure 134/101 10/03/24 23:34 O2 Sat by Pulse Oximetry 100 10/03/24 23:34 Pain Scale Pain Intensity 3 - Physical Exam General Appearance: no apparent distress Eye Exam: PERRL/EOMI Ears, Nose, Throat Exam: normal ENT inspection Respiratory Exam: normal breath sounds Cardiovascular Exam: regular rate/rhythm Gastrointestinal/Abdomen Exam: soft, normal bowel sounds, tenderness (patient is tender in the right lower quadrant ) SpO2: 100 Ordered Tests: Active Orders 24 hr Category Date Time Status ABDOMEN AND PELVIS W CONTRAST [CT] Stat Exams 10/04/24 00:09 Completed CBC W DIFF Stat Lab 10/04/24 00:22 Completed CMP Stat Lab 10/04/24 00:22 Completed HCG, Quantitative (Inhouse) Stat Lab 10/04/24 00:22 Completed LIPASE Stat Lab 10/04/24 00:22 Completed Medication Summary Discontinued Medications Generic Name Dose Route Start Last Admin Trade Name Freq PRN Reason Stop Dose Admin Sodium Chloride 1,000 mls @ 999 mls/hr 10/04/24 00:08 10/04/24 01:14 Sodium Chloride 0.9% 1000 Ml IV 10/04/24 01:08 Infused .Q1H1M STA Infusion Ondansetron HCl 4 mg 10/04/24 00:40 10/04/24 00:44 Ondansetron Hcl 4 Mg/2 Ml Vial IV 10/04/24 00:41 4 mg STAT ONE Administration Lab/Rad Data: Laboratory Result Diagrams 10/04/24 00:22 04/14/25 00:22 Laboratory Results 10/04/24 10/04/24 10/04/24 Range/Units 00:22 00:22 00:22 WBC 7.7 (3.98-10.04) x10^3/uL RBC 3.85 L (3.93-5.22) x10^6/uL Hgb 13.0 (11.2-15.7) g/dL Hct 37.3 (34.1-44.9) % MCV 96.9 H (79.4-94.8) fL MCH 33.8 H (25.6-32.2) pg MCHC 34.9 (32.2-35.5) g/dL RDW 12.1 (11.7-14.4) % Plt Count 330 (182-369) x10^3/uL MPV 9.3 L (9.4-12.3) fL Gran % 56.4 (34.0-71.1) % Immature Gran % (Auto) 0.3 (0.001-0.429) % Nucleat RBC Rel Count 0.0 (0.00-0.2) % Eos # (Auto) 0.19 (0.04-0.36) x10^3/uL Immature Gran # (Auto) 0.02 (0.001-0.031) x10^3u/L Absolute Lymphs (auto) 2.40 (1.18-3.74) x10^3/uL Absolute Monos (auto) 0.70 (0.24-0.86) x10^3/uL Absolute Nucleated RBC 0.00 (0.00-0.012) x10^3u/L Lymphocytes % 31.1 (19.3-51.7) % Monocytes % 9.1 (4.7-12.5) % Eosinophils % 2.5 (0.7-5.8) % Basophils % 0.6 (0.1-1.2) % Absolute Granulocytes 4.35 (1.56-6.13) x10^3/uL Basophils # 0.05 (0.01-0.08) x10^3/uL Sodium 140 (135-145) mmol/L Potassium 4.1 (3.5-5.1) mmol/L Chloride 106 (98-107) mmol/L Carbon Dioxide 22 (22-30) mmol/L Anion Gap 16.5 H (5-15) MEQ/L BUN 13 (7-17) mg/dL Creatinine 0.71 (0.52-1.04) mg/dL Estimated GFR 120.9 ML/MIN Glucose 103 (74-106) mg/dL Calcium 8.9 (8.4-10.2) mg/dL Total Bilirubin 0.50 (0.2-1.3) mg/dL AST 32 (14-36) U/L ALT 32 (0-35) U/L Alkaline Phosphatase 53 (38-126) U/L Serum Total Protein 7.1 (6.3-8.2) g/dL Albumin 4.4 (3.5-5.0) g/dL Lipase 35 (23-300) U/L Beta HCG, Quant < 2.39 mIU/ml - Progress Progress Note: Patient was seen and evaluated for abdominal pain labs were ordered CT of the abdomen pelvis was ordered she was given IV fluids 10/04/24 00:12 Patient was updated with the results of the lab and CT she was informed of the need to follow-up with her primary care provider for outpatient follow-up and evaluation. 10/04/24 02:13 Medical Desision Making - Discussion of managment Agreed on:: need for follow-up - Departure Departure Disposition: Home Clinical Impression: Abdominal pain Condition: Stable Critical Care Time: No Referrals: CLIFTON RAMÍREZ NP [Primary Care Provider] - Follow up/PCP as directed
[2024-10-04 00:25] VITALS: RESP 18
[2024-10-04 00:26] LABS: Absolute Neutrophil Ct (ANC) 4.35 x10^3/uL (1.56-6.13); BASOPHIL % 0.6 % (0.1-1.2); Basophil (Absolute #) 0.05 x10^3/uL (0.01-0.08); Eosinophil % 2.5 % (0.7-5.8); Eosinophil (Absolute #) 0.19 x10^3/uL (0.04-0.36); Hematocrit 37.3 % (34.1-44.9); IMMATURE GRAN # 0.02 x10^3u/L (0.001-0.031); IMMATURE GRAN % 0.3 % (0.001-0.429); Lymphocytes % 31.1 % (19.3-51.7); Mean Cell Volume 96.9 fL (79.4-94.8); Mean Corpuscular Hemoglobin 33.8 pg (25.6-32.2); Mean Corpuscular Hgb Concent. 34.9 g/dL (32.2-35.5); Mean Platelet Volume 9.3 fL (9.4-12.3); Monocytes % 9.1 % (4.7-12.5); Neutrophil % 56.4 % (34.0-71.1); Platelet Count 330 x10^3/uL (182-369); Red Blood Count 3.85 x10^6/uL (3.93-5.22); Red Cell Distribution Width 12.1 % (11.7-14.4); White Blood Count 7.7 x10^3/uL (3.98-10.04)
[2024-10-04] MEDS: Zofran 4 MG/2 ML VIAL IV ONE (00:44)
[2024-10-04 01:05] LABS: ALBUMIN 4.4 g/dL (3.5-5.0); ANION GAP 16.5 MEQ/L (5-15); BILIRUBIN,TOTAL 0.5 mg/dL (0.2-1.3); Calcium 8.9 mg/dL (8.4-10.2); Creatinine 1 0.71 mg/dL (0.52-1.04); EST GLOMERULAR FILTRATION RATE 120.9 ML/MIN; Potassium 4.1 mmol/L (3.5-5.1); Total Protein 7.1 g/dL (6.3-8.2)
--- NOTE | 2024-10-04 02:03 | XRAY ---
CLINICAL HISTORY: abdominal pain COMPARISON: None.6 TECHNIQUE: Contiguous axial images were obtained from the level of the diaphragm to the pubic symphysis with intravenous contrast. Coronal and sagittal reconstructions were likewise performed and indicated to increase the sensitivity for detecting clinically relevant pathology. If IV contrast material had not been administered, the likelihood of detecting abnormalities relevant to the patient's condition would have been substantially decreased. CT scan was performed according to ALARA (as low as reasonable achievable). FINDINGS: The visualized lung bases are clear. The liver is normal in size and attenuation. No focal liver lesions are seen. There is no intra or extrahepatic biliary ductal dilatation. Hepatic vasculature is patent. The gallbladder is present. The spleen, pancreas, and adrenal glands are unremarkable. The kidneys are normal in size and attenuation. There is no hydronephrosis or perinephric fat stranding. No renal calculi or renal masses are identified. The ureters are normal in caliber and no ureteral calculi are seen. The bladder is normal in contour. Pelvic viscera are unremarkable. No focal or diffuse bowel wall thickening or evidence of bowel obstruction is identified. No evidence of inflamed appendix. Abdominal and pelvic vasculature is patent. No adenopathy or fluid collections are seen. No aggressive appearing osseous lesions are identified. IMPRESSION: No significant abnormality detected Electronically Signed by: Florentino Joseph MD. (10/04/2024 01:59:58 EDT)
[2024-10-04 02:05] VITALS: BP 113/69; PULSE 88
== END 2024-10-04 02:29 | disposition home or self-care (01) ==
LOC: ED 23:22
DX: R10.9 Unspecified abdominal pain (principal); Z79.899 Other long term (current) drug therapy; Z72.0 Tobacco use
CPT/HCPCS: 36415; 74177; 80053; 83690; 84702; 85025; 96361; 96374; 99284; 99285; J2405